=== PATIENT | female | born 1950 | race Two or more races ===

== ENCOUNTER 2022-05-24 11:00 | Outpatient (CLI) | payer OTHER ==
[~2022-05-24 11:00] MED LIST: EVISTA60 MG; NORVASC10 MG; PREMARIN42.5 G1; VITORIN; [UNRECOGNIZED DRUG - OTHER]
== END 2022-05-24 11:20 | disposition home or self-care (01) ==
LOC: SONOGRAMA 11:00
PROVIDERS: ATTEND Pathology Anatomic Pathology & Clinical Pathology
DX: E04.2 Nontoxic multinodular goiter (principal)